=== PATIENT | male | born 1995 | race Hispanic/Latino ===

== ENCOUNTER 2018-08-10 11:10 | Emergency (ER) | payer OTHER ==
--- NOTE | 2018-08-10 11:18 | Emergency Department Report ---
Chief Complaint: Extremity Problem,Nontraumatic Stated Complaint: SPIDER BITE ON FINGER Time Seen by Provider: 08/10/18 11:14 - HPI History of Present Illness: This is a 22 y.o. male that presents with abscess and swelling to right 5th finger x 1 week. Patient think it is a spider bite. - Exam Vital Signs: Vital Signs 08/10/18 11:15 Temperature 98.8 F Pulse Rate 107 H Respiratory 16 Rate Blood Pressure 142/84 O2 Sat by Pulse 99 Oximetry MSE screening note: Focused history and physical exam performed. Due to findings the following was ordered: ACC for further evaluation. ED Disposition for MSE Condition: Stable
[2018-08-10] MEDS ORDERED: ANCEF IM ONE (12:33)
[2018-08-10] MEDS ORDERED: DECADRON IM ONE (12:33)
[2018-08-10] MEDS ORDERED: NORCO 10/325 PO ONE (12:33)
--- NOTE | 2018-08-10 12:34 | Emergency Department Report ---
Abscess Boil HPI - HPI Chief Complaint: Extremity Problem,Nontraumatic Stated Complaint: SPIDER BITE ON FINGER Time Seen by Provider: 08/10/18 11:14 Duration: 5 Days Location: Upper Extremity Severity: Moderate History: Yes Pain, Yes Purulent Drainage, No Fever, No Numbness, No Foreign Body, No Previous History, No Insect Bite HPI: 22 yo male with ? insect bite to finger. It is red, swollen, and draining. no abcess to drain. nail bed intact. pain limited by swelling. Home Medications: Previous Rx's Medication Instructions Recorded Last Taken Type Naproxen [Naprosyn] 500 mg PO BID PRN #20 tablet 08/10/18 Unknown Rx Sulfamethoxazole/Trimethoprim 1 each PO BID #14 tablet 08/10/18 Unknown Rx [Bactrim DS TAB] Allergies/Adverse Reactions: Allergies Allergy/AdvReac Type Severity Reaction Status Date / Time No Known Allergies Allergy Unverified 12/15/14 19:52 ED Review of Systems ROS: Stated complaint: SPIDER BITE ON FINGER Other details as noted in HPI Comment: All other systems reviewed and negative ED Past Medical Hx - Past Medical History Previous Medical History?: No Additional medical history: boil - Surgical History Past Surgical History?: No - Family History Family history: no significant - Social History Smoking Status: Current Every Day Smoker Substance Use Type: None - Medications Home Medications: Home Medications Medication Instructions Recorded Confirmed Last Taken Type Naproxen [Naprosyn] 500 mg PO BID PRN #20 tablet 08/10/18 Unknown Rx Sulfamethoxazole/Trimethoprim 1 each PO BID #14 tablet 08/10/18 Unknown Rx [Bactrim DS TAB] ED Abscess Boil Physical Exam - Exam General: Vital signs noted. No distress. Alert and acting appropriately. Exam: Yes Tenderness, Yes Surrounding Cellulites/Erythema, Yes Normal Neurologic Exam, Yes Normal Circulation, No Heart Murmur ED Course Vital Signs 08/10/18 11:15 Temperature 98.8 F Pulse Rate 107 H Respiratory 16 Rate Blood Pressure 142/84 O2 Sat by Pulse 99 Oximetry Critical care attestation.: If time is entered above; I have spent that time in minutes in the direct care of this critically ill patient, excluding procedure time. ED Medical Decision Making - Medical Decision Making draining finger wound xray noted tdap utd ancef IM wound care pt educated dc home with dc poc Vital Signs (72 hours) 08/10/18 08/10/18 11:15 12:50 Temperature 98.8 F Pulse Rate 107 H Respiratory 16 17 Rate Blood Pressure 142/84 O2 Sat by Pulse 99 Oximetry ED Disposition Clinical Impression: Finger infection Disposition: - TO HOME OR SELFCARE Is pt being admited?: No Does the pt Need Aspirin: No Condition: Stable Instructions: Abscess (ED) Additional Instructions: DIET TOLERATED MEDS ORDERED FOLLOW UP PCP referral below ACTIVITY TOLERATED MOTRIN OR TYLENOL FOR PAIN OR FEVER clean finger twice per day with soap and water apply cream and wrap in guaze do this until it is healed Referrals: [facility] [Other] - 3-5 Days Time of Disposition: 13:05
[2018-08-10] MEDS ORDERED: WATER FOR INJ (PF) ONE (12:45)
--- NOTE | 2018-08-10 12:57 | XRay Report ---
RIGHT FINGERS, ONE VIEW History: Pain finger Findings: There is severe soft tissue swelling and ulceration involving the distal fifth digit. No obvious fracture or bony destruction is identified. The joint spaces are unremarkable. Impression: Severe soft tissue swelling and ulceration of the distal fifth digit. No obvious fracture or osteomyelitis on x-ray.
[2018-08-10 13:35] VITALS: BP 140/80
== END 2018-08-10 13:34 | disposition home or self-care (01) ==
LOC: ED 11:10
DX: L08.9 Local infection of the skin and subcutaneous tissue, unspecified (principal); F17.200 Nicotine dependence, unspecified, uncomplicated
CPT/HCPCS: 73140; 99283; J0690; J1100